=== PATIENT | female | born 1985 | race Caucasian/White ===

== ENCOUNTER 2017-12-16 08:04 | Day surgery (SDC) | payer MEDICAID ==
[~2017-12-16 08:04] MED LIST: Lactated Ringers 1,000 ML IV SCH
[2017-12-16] MEDS ORDERED: Midazolam 1 MG/ML 2 ML SDV IV ONE (09:56)
[2017-12-16] MEDS ORDERED: Propofol 200 MG/20 ML SDV IV ONE (09:56)
[2017-12-16] MEDS ORDERED: Lidocaine 2% 100 MG/5 ML Syringe IVPUSH ONE (09:56)
--- NOTE | 2017-12-16 10:14 | PCM.OPNOTE ---
- General Post-Op/Procedure Note Date of Surgery/Procedure: 12/16/17 Operative Procedure(s): egd with bx Findings: ge junction at 30 cm hiatal hernia erosive esophagitis Pre Op Diagnosis: hx of hiatal hernia. hx of epigastric abd pain Post-Op Diagnosis: ge junction at 30 cm. hiatal hernia. erosive esophagitis Anesthesia Technique: MAC Primary Surgeon: Kevon Valentine Anesthesia Provider: Gilma Garcia Pathology: distal esophagus Complications: None Condition: Good Free Text/Narrative:: see dictation
[2017-12-16 11:53] VITALS: BP 125/78
--- NOTE | 2017-12-16 12:02 | OR ---
DATE OF OPERATION: 12/16/2017 SURGEON: Kevon Valentine MD PREOPERATIVE DIAGNOSIS: Epigastric abdominal pain, personal history of hiatal hernia. POSTOPERATIVE DIAGNOSIS: Erosive esophagitis and hiatal hernia. INDICATIONS FOR PROCEDURE: This is a 32-year-old white female who is referred with the above-mentioned complaint. The patient was offered and accepted an upper endoscopy to evaluate for esophagitis. She does have a known history of hiatal hernia. DESCRIPTION OF PROCEDURE: After an excellent IV sedation was administered, the bite block was inserted. The flexible endoscope was passed without difficulty down the patient's esophagus into the stomach. Stomach was insufflated. Scope was passed through the pylorus to the second portion of the duodenum and slowly withdrawn. The following findings were noted: The duodenum is unremarkable. The stomach demonstrated a hiatal hernia with approximately 10 cm of the esophagus in the chest. The GE junction measured at 30 cm. There was evidence of erosive esophagitis and biopsies were taken. The remainder of the esophageal exam was unremarkable. The stomach was deflated and the scope was removed. The patient tolerated the procedure well and was taken to recovery room in good condition. She will follow up in my office in 7-10 days. /[id number] BARNEY/LIU
== END 2017-12-16 11:13 | disposition home or self-care (01) ==
LOC: FB.SDS 08:04
PROVIDERS: ATTEND Surgery
DX: K22.10 Ulcer of esophagus without bleeding (principal); K44.9 Diaphragmatic hernia without obstruction or gangrene; K21.9 Gastro-esophageal reflux disease without esophagitis; E66.01 Morbid (severe) obesity due to excess calories; E78.5 Hyperlipidemia, unspecified; G47.30 Sleep apnea, unspecified; Z79.899 Other long term (current) drug therapy; Z68.43 Body mass index [BMI] 50.0-59.9, adult; Z90.49 Acquired absence of other specified parts of digestive tract; Z98.890 Other specified postprocedural states; Z87.891 Personal history of nicotine dependence
CPT/HCPCS: 43239; 81025; J2250; J2704; J7120; 88305

== ENCOUNTER 2018-01-08 19:15 | Emergency (ER) | payer MEDICAID ==
[2018-01-08 19:54] VITALS: BP 135/82
--- NOTE | 2018-01-08 20:04 | EDM.PDOC ---
ED HPI GENERAL MEDICAL PROBLEM - General Chief Complaint: Abdominal Pain Stated Complaint: ABD PAIN Time Seen by Provider: 01/08/18 19:15 Source of Information: Reports: Patient History Limitations: Reports: No Limitations - History of Present Illness INITIAL COMMENTS - FREE TEXT/NARRATIVE: 32 y.o.w.f came to the ed because of abd. pain. Pt had her last BM last Tuesday. Pt did not take laxatives as of yet. No N/V or dizziness, no trauma, no other acute medical issues. BP 135/82 RR 14 Pulse ox 98% on RA, Temp 36.8 Pulse 95 Onset Date: 01/06/18 Onset Time: 09:00 Duration: Day(s):, Getting Worse Location: Reports: Abdomen Quality: Reports: Ache, Burning, Dull Severity: Moderate Improves with: Reports: Movement Worsens with: Reports: Rest Context: Reports: Other (sedentary lifestyle) Associated Symptoms: Reports: No Other Symptoms Lower Abdominal Pain Score (Numeric/FACES): 9 - Related Data Allergies Allergy/AdvReac Type Severity Reaction Status Date / Time No Known Allergies Allergy Verified 12/18/14 03:44 Home Meds: Home Meds ClonazePAM [KlonoPIN] 0.5 mg PO BEDTIME PRN 12/15/17 [History] Methylphenidate HCl [Ritalin] 5 mg PO ASDIRECTED 12/15/17 [History] Methylphenidate HCl [Ritalin] 10 mg PO DAILY 12/15/17 [History] Nortriptyline HCl [Pamelor] 25 mg PO BEDTIME 12/15/17 [History] Omeprazole Magnesium 20 mg PO DAILY 12/15/17 [History] Vits #93/Iron Fum/FA [ Formula Tablet] 1 ea PO DAILY 12/15/17 [ History] Rosuvastatin Calcium [Crestor] 40 mg PO DAILY 12/15/17 [History] SUMAtriptan 100 mg PO ASDIRECTED PRN 12/15/17 [History] Sucralfate [Carafate] 1 gm PO WITHMEALSANDBED #120 tablet 12/16/17 [Rx] Past Medical History HEENT History: Reports: Impaired Vision Cardiovascular History: Reports: None, High Cholesterol Respiratory History: Reports: None Gastrointestinal History: Reports: GERD, Hiatal Hernia Genitourinary History: Reports: None 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: III 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 III Musculoskeletal History: Reports: Fracture Neurological History: Reports: Headaches, Chronic Psychiatric History: Reports: None Endocrine/Metabolic History: Reports: Obesity/BMI 30+ Hematologic History: Reports: None Oncologic (Cancer) History: Reports: None Dermatologic History: Reports: None - Infectious Disease History Infectious Disease History: Reports: None - Past Surgical History HEENT Surgical History: Reports: Oral Surgery Other HEENT Surgeries/Procedures: WISDOM TEETH OUT TEEN UNDER GENERAL GI Surgical History: Reports: Cholecystectomy, EGD Other GI Surgeries/Procedures: LAP SHAINA 2014 Musculoskeletal Surgical History: Reports: ORIF Other Musculoskeletal Surgeries/Procedures:: PER HX Social & Family History - Family History Family Medical History: Noncontributory - Tobacco Use Smoking Status *Q: Former Smoker Years of Tobacco use: 2 Used Tobacco, but Quit: Yes Month Tobacco Last Used: 05-14-2006 Second Hand Smoke Exposure: No - Caffeine Use Caffeine Use: Reports: Soda Caffeine Use Comment: 2/WEEK - Alcohol Use Days Per Week of Alcohol Use: 3 - Recreational Drug Use Recreational Drug Use: No ED ROS GENERAL - Review of Systems Review Of Systems: See Below Constitutional: Reports: No Symptoms HEENT: Reports: No Symptoms Respiratory: Reports: No Symptoms Cardiovascular: Reports: No Symptoms Endocrine: Reports: No Symptoms GI/Abdominal: Reports: Abdominal Pain : Reports: No Symptoms Musculoskeletal: Reports: No Symptoms Skin: Reports: No Symptoms Neurological: Reports: No Symptoms Psychiatric: Reports: No Symptoms Hematologic/Lymphatic: Reports: No Symptoms Immunologic: Reports: No Symptoms ED EXAM, GI/ABD - Physical Exam Exam: See Below Exam Limited By: No Limitations General Appearance: Alert, WD/WN, Mild Distress, Obese Eyes: Bilateral: Normal Appearance Ears: Normal External Exam Nose: Normal Inspection Throat/Mouth: Normal Inspection Head: Atraumatic, Normocephalic Neck: Normal Inspection, Supple, Non-Tender, Full Range of Motion Respiratory/Chest: No Respiratory Distress, Lungs Clear, Normal Breath Sounds, Chest Non-Tender Cardiovascular: Normal Peripheral Pulses, Regular Rate, Rhythm, No Edema, No Gallop, No Rub GI/Abdominal Exam: Normal Bowel Sounds, No Organomegaly, No Abnormal Bruit, No Mass, Pelvis Stable, Tender (troughout) (Female) Exam: Deferred Rectal (Female) Exam: Deferred Back Exam: Normal Inspection, Full Range of Motion Extremities: Normal Inspection, Normal Range of Motion, Non-Tender, No Pedal Edema, Normal Capillary Refill Neurological: Alert, Oriented, CN II-XII Intact, Normal Cognition, Normal Gait, No Motor/Sensory Deficits Psychiatric: Normal Affect, Normal Mood Skin Exam: Warm, Dry, Intact, Normal Color, No Rash Lymphatic: No Adenopathy Course - Vital Signs Text/Narrative:: 32 y.o.w.f came to the ed because of abd. pain. Pt had her last BM last Tuesday. Pt did not take laxatives as of yet. No N/V or dizziness, no trauma, no other acute medical issues. BP 135/82 RR 14 Pulse ox 98% on RA, Temp 36.8 Pulse 95 PE: Obese 32 y.o.w.f with abd. pain Imaging: Abd falt/upright: Constipation Impression: Constipation Tx: Fleets enema, Mg Citrate Reexam: Improved Plan: D/C with instructions Last Recorded V/S: Last Vital Signs Temp 36.6 C 01/08/18 19:26 Pulse 95 01/08/18 19:26 Resp 14 01/08/18 19:26 BP 135/82 01/08/18 19:26 Pulse Ox 100 01/08/18 19:26 - Orders/Labs/Meds Orders: Active Orders 24 hr Category Date Time Status Enema [RC] ASDIRECTED Care 01/08/18 20:07 Active Abdomen 2V AP Flat Upright [CR] Stat Exams 01/08/18 19:28 Taken Labs: Laboratory Tests 01/08/18 Range/Units 19:52 Urine Color Yellow (YELLOW) Urine Appearance Clear (CLEAR) Urine pH 6.0 (5.0-6.5) Ur Specific Zearing 1.020 (1.010-1.025) Urine Protein Negative (NEGATIVE) mg/dL Urine Glucose (UA) Normal (NEGATIVE) mg/dL Urine Ketones Negative (NEGATIVE) mg/dL Urine Occult Blood Moderate H (NEGATIVE) Urine Nitrite Negative (NEGATIVE) Urine Bilirubin Negative (NEGATIVE) Urine Urobilinogen Normal (NEGATIVE) mg/dL Ur Leukocyte Esterase Negative (NEGATIVE) Urine RBC 5-10 (0) Urine WBC 0-5 (0) Ur Squamous Epith Cells Few H (NS,R,O) Urine Bacteria Few H (NS) Urine Mucus Few H (NS) Meds: Medications Discontinued Medications Generic Name Dose Route Start Last Admin Trade Name Soham PRN Reason Stop Dose Admin Magnesium Citrate 296 ml 01/08/18 20:33 01/08/18 20:35 Citrate Of Magnesia PO 01/08/18 20:34 Not Given ONETIME ONE Magnesium Citrate Confirm 01/08/18 20:32 Citrate Of Magnesia Administered 01/08/18 20:33 Dose 296 ml .ROUTE .STK-MED ONE Sodium Biphosphate/Sodium Phosphate 133 ml 01/08/18 20:07 01/08/18 20:10 Fleet Enema RECTAL 01/08/18 20:08 133 ml ONETIME ONE Administration Sodium Biphosphate/Sodium Phosphate 133 ml 01/08/18 20:25 Fleet Enema RECTAL 01/08/18 20:26 ONETIME ONE Departure - Departure Time of Disposition: 20:26 Disposition: Home, Self-Care 01 Condition: Good Clinical Impression: Constipation by delayed colonic transit - Discharge Information Instructions: Constipation, Adult, [id number], Magnesium Citrate oral solution Referrals: Rafa Pierre MD [Primary Care Provider] - Forms: ED Department Discharge Additional Instructions: Please eat oatmeal daily, use fleets enemas til clear, please take one amp Mag Citrate as recommended, please f/u, come back if your symptoms get worse acutely - My Orders Last 24 Hours: My Active Orders 01/08/18 19:28 Abdomen 2V AP Flat Upright [CR] Stat 01/08/18 20:07 Enema [RC] ASDIRECTED - Assessment/Plan Last 24 Hours: My Active Orders 01/08/18 19:28 Abdomen 2V AP Flat Upright [CR] Stat 01/08/18 20:07 Enema [RC] ASDIRECTED
[2018-01-08] MEDS ORDERED: Sodium Phosphate,Monobasic/Sodium Phosphate,Dibasic Enema 133 ML Bottle RECTAL ONE ×2 (20:07→20:25)
[2018-01-08] MEDS ORDERED: Magnesium Citrate Solution 296 ML Bottle ONE (20:32)
[2018-01-08] MEDS ORDERED: Magnesium Citrate Solution 296 ML Bottle PO ONE (20:33)
--- NOTE | 2018-01-09 14:06 | CR ---
INDICATION: Abdominal pain, no BM for 2-3 days. ABDOMEN: Six images of the abdomen in supine and upright projections 2017 revealed an intrauterine device centrally in the pelvis, compatible with uterine positioning - correlate clinically. There is evidence of previous cholecystectomy with clips in the area of the cystic duct. Mild dextroconcave scoliosis of the lower middle lumbar spine is noted. The pattern of gas and feces is nonspecific without evidence of free air or obstruction. No definite organomegaly, mass lesions, or definite nonvascular pathologic calcifications were identified. However, there is suggestion of a possible small calculus in the midpole area of the left kidney. Evidence of exogenous obesity is noted. IMPRESSION: 1. IUD in place. 2. Possible tiny calculus mid pole left kidney. 3. Post cholecystectomy. 4. Mild scoliosis. 5. No definite acute abnormality in the abdomen. MTDD
== END 2018-01-08 20:44 | disposition home or self-care (01) ==
LOC: FB.ED 19:15
DX: K59.01 Slow transit constipation (principal); E78.00 Pure hypercholesterolemia, unspecified; Z79.899 Other long term (current) drug therapy; Z87.891 Personal history of nicotine dependence; Z90.49 Acquired absence of other specified parts of digestive tract
CPT/HCPCS: 74019; 81001; 99284; A9270

== ENCOUNTER 2018-08-14 12:58 | Emergency (ER) | payer MEDICAID ==
--- NOTE | 2018-08-14 13:22 | EDM.PDOC ---
ED HPI GENERAL MEDICAL PROBLEM - General Chief Complaint: Chest Pain Stated Complaint: CHEST PAIN Time Seen by Provider: 08/14/18 13:05 Source of Information: Reports: Patient, Family History Limitations: Reports: No Limitations - History of Present Illness INITIAL COMMENTS - FREE TEXT/NARRATIVE: Krissy reports L shoulder pains this early am that occurred while getting kids ready for school. Pains were intermittent and sharp at times, with some radiation accross the L anterior chest. She felt some vague SOB, but became alarmed when L shoulder pains migrated into the L arm, forearm and L hand to the fingertips. There was no corresponding palpitations, sweats, GI upset or lt headiness. She subsequently saw her PCP who did a 12 lead ekg noting NSR and no acute changes, and suggested an ED evaluation. Upon arrival, her sxs have improved. She has taken no meds. - Related Data Allergies Allergy/AdvReac Type Severity Reaction Status Date / Time No Known Allergies Allergy Verified 08/14/18 13:42 Home Meds: Home Meds ClonazePAM [KlonoPIN] 0.5 mg PO BEDTIME PRN 12/15/17 [History] Methylphenidate HCl [Ritalin] 5 mg PO ASDIRECTED 12/15/17 [History] Methylphenidate HCl [Ritalin] 10 mg PO DAILY 12/15/17 [History] Nortriptyline HCl [Pamelor] 25 mg PO BEDTIME 12/15/17 [History] Omeprazole Magnesium 20 mg PO DAILY 12/15/17 [History] Rosuvastatin Calcium [Crestor] 40 mg PO DAILY 12/15/17 [History] SUMAtriptan 100 mg PO ASDIRECTED PRN 12/15/17 [History] Sucralfate [Carafate] 1 gm PO WITHMEALSANDBED #120 tablet 12/16/17 [Rx] Past Medical History HEENT History: Reports: Impaired Vision Cardiovascular History: Reports: None, High Cholesterol Respiratory History: Reports: None Gastrointestinal History: Reports: GERD, Hiatal Hernia Genitourinary History: Reports: None 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: III 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 III Musculoskeletal History: Reports: Fracture Neurological History: Reports: Headaches, Chronic Psychiatric History: Reports: None Endocrine/Metabolic History: Reports: Obesity/BMI 30+ Hematologic History: Reports: None Oncologic (Cancer) History: Reports: None Dermatologic History: Reports: None - Infectious Disease History Infectious Disease History: Reports: None - Past Surgical History HEENT Surgical History: Reports: Oral Surgery Other HEENT Surgeries/Procedures: WISDOM TEETH OUT TEEN UNDER GENERAL GI Surgical History: Reports: Cholecystectomy, EGD Other GI Surgeries/Procedures: LAP SHAINA 2014 Musculoskeletal Surgical History: Reports: ORIF Other Musculoskeletal Surgeries/Procedures:: PER HX Social & Family History - Family History Family Medical History: Noncontributory - Caffeine Use Caffeine Use: Reports: Soda Caffeine Use Comment: 2/WEEK ED ROS GENERAL - Review of Systems Review Of Systems: See Below Constitutional: Reports: No Symptoms HEENT: Reports: No Symptoms Respiratory: Reports: No Symptoms Cardiovascular: Reports: Chest Pain Endocrine: Reports: No Symptoms GI/Abdominal: Reports: No Symptoms : Reports: No Symptoms Musculoskeletal: Reports: Other (L shoulder pain, located behind the shoulder) Skin: Reports: No Symptoms Neurological: Reports: Tingling (L hand and fingertips) Psychiatric: Reports: No Symptoms Hematologic/Lymphatic: Reports: No Symptoms Immunologic: Reports: No Symptoms ED EXAM, GENERAL - Physical Exam Exam: See Below Exam Limited By: No Limitations General Appearance: Alert, WD/WN, No Apparent Distress, Anxious, Obese Eye Exam: Bilateral Eye: EOMI, Normal Inspection, PERRL Ears: Normal External Exam Nose: Normal Inspection Throat/Mouth: Normal Inspection, Normal Oropharynx Head: Atraumatic, Normocephalic Neck: Normal Inspection, Supple, Non-Tender, Full Range of Motion Respiratory/Chest: No Respiratory Distress, Lungs Clear, Normal Breath Sounds, No Accessory Muscle Use, Chest Non-Tender Cardiovascular: Normal Peripheral Pulses, Regular Rate, Rhythm, No Edema, No Gallop, No JVD, No Murmur, No Rub GI/Abdominal: Normal Bowel Sounds, Soft, Non-Tender, No Organomegaly, No Distention, No Mass (Female) Exam: Deferred Rectal (Female) Exam: Deferred Back Exam: Normal Inspection, Full Range of Motion Extremities: Normal Inspection, Normal Range of Motion, Other (limited tenderness of L shoulder in proximity to supraspinatus and infraspinatus mm; no rash) Neurological: Alert, Oriented, CN II-XII Intact, Normal Cognition, No Motor/ Sensory Deficits Psychiatric: Normal Affect, Anxious Skin Exam: Warm, Dry, Intact, Normal Color, No Rash Lymphatic: No Adenopathy Course - Vital Signs Text/Narrative:: Following assessment at the [facility] ED, a screening ekg was normal and unchanged; port chest x ray normal for age; CBC, CMP, Troponin I, d dimer all normal or baseline for age. Atypical chest pain with musculoskeletal L shoulder pain without findings for CVD. - Orders/Labs/Meds Orders: Active Orders 24 hr Category Date Time Status Chest 1V Frontal [CR] Stat Exams 08/14/18 13:16 Taken Labs: Laboratory Tests 08/14/18 08/14/18 08/14/18 Range/Units 13:30 13:30 13:30 WBC 8.6 (4.5-12.0) X10-3/uL RBC 4.60 (3.23-5.20) x10(6)uL Hgb 13.5 D (11.5-15.5) g/dL Hct 40.0 (30.0-51.3) % MCV 86.8 (80-96) fL MCH 29.4 (27.7-33.6) pg MCHC 33.8 (32.2-35.4) g/dL RDW 13.4 (11.5-15.5) % Plt Count 252 (125-369) X10(3)uL MPV 7.9 (7.4-10.4) fL Neut % (Auto) 75.9 (46-82) % Lymph % (Auto) 20.6 (13-37) % Reynolds % (Auto) 2.4 L (4-12) % Eos % (Auto) 1 (1.0-5.0) % Baso % (Auto) 1 (0-2) % Neut # (Auto) 6.5 (1.6-8.3) # Lymph # (Auto) 1.8 (0.6-5.0) # Reynolds # (Auto) 0.2 (0.0-1.3) # Eos # (Auto) 0.1 (0.0-0.8) # Baso # (Auto) 0.0 (0.0-0.2) # D-Dimer, Quantitative 0.52 (0.0-0.59) mg/LFEU Sodium 139 (135-145) mmol/L Potassium 3.3 L (3.5-5.3) mmol/L Chloride 103 (100-110) mmol/L Carbon Dioxide 25 (21-32) mmol/L BUN 13 (7-18) mg/dL Creatinine 0.7 (0.55-1.02) mg/dL Est Cr Clr Drug Dosing TNP Estimated GFR (MDRD) > 60 (>60) BUN/Creatinine Ratio 18.6 (9-20) Glucose 120 H (80-116) mg/dL Calcium 8.8 (8.6-10.2) mg/dL Total Bilirubin 0.5 (0.1-1.3) mg/dL AST 19 (5-25) IU/L ALT 26 (12-36) U/L Alkaline Phosphatase 82 (56-112) IU/L Troponin I (<0.017-0.056) ng/mL Total Protein 7.5 (6.0-8.0) g/dL Albumin 3.5 (3.5-5.2) g/dL Globulin 4.0 g/dL Albumin/Globulin Ratio 0.9 08/14/18 Range/Units 13:30 WBC (4.5-12.0) X10-3/uL RBC (3.23-5.20) x10(6)uL Hgb (11.5-15.5) g/dL Hct (30.0-51.3) % MCV (80-96) fL MCH (27.7-33.6) pg MCHC (32.2-35.4) g/dL RDW (11.5-15.5) % Plt Count (125-369) X10(3)uL MPV (7.4-10.4) fL Neut % (Auto) (46-82) % Lymph % (Auto) (13-37) % Reynolds % (Auto) (4-12) % Eos % (Auto) (1.0-5.0) % Baso % (Auto) (0-2) % Neut # (Auto) (1.6-8.3) # Lymph # (Auto) (0.6-5.0) # Reynolds # (Auto) (0.0-1.3) # Eos # (Auto) (0.0-0.8) # Baso # (Auto) (0.0-0.2) # D-Dimer, Quantitative (0.0-0.59) mg/LFEU Sodium (135-145) mmol/L Potassium (3.5-5.3) mmol/L Chloride (100-110) mmol/L Carbon Dioxide (21-32) mmol/L BUN (7-18) mg/dL Creatinine (0.55-1.02) mg/dL Est Cr Clr Drug Dosing Estimated GFR (MDRD) (>60) BUN/Creatinine Ratio (9-20) Glucose (80-116) mg/dL Calcium (8.6-10.2) mg/dL Total Bilirubin (0.1-1.3) mg/dL AST (5-25) IU/L ALT (12-36) U/L Alkaline Phosphatase (56-112) IU/L Troponin I < 0.017 L (<0.017-0.056) ng/mL Total Protein (6.0-8.0) g/dL Albumin (3.5-5.2) g/dL Globulin g/dL Albumin/Globulin Ratio Departure - Departure Time of Disposition: 14:22 Disposition: Home, Self-Care 01 Condition: Good Clinical Impression: Atypical chest pain Referrals: Rafa Pierre MD [Primary Care Provider] - Forms: ED Department Discharge - Problem List & Annotations (1) Atypical chest pain SNOMED Code(s): 240644321 Code(s): R07.89 - OTHER CHEST PAIN Status: Acute Current Visit: Yes Annotation/Comment:: Atypical chest pain, managed with NSAIDs or Tylenol. (2) Shoulder pain, left SNOMED Code(s): 70366513, 27220775 Code(s): M25.512 - PAIN IN LEFT SHOULDER Status: Acute Current Visit: Yes Annotation/Comment:: L shoulder pain with musculoskeletal features, managment with NSAIDs or Tylenol. Qualifiers: Chronicity: unspecified Qualified Code(s): M25.512 - Pain in left shoulder - Problem List Review Problem List Initiated/Reviewed/Updated: Yes - My Orders Last 24 Hours: My Active Orders 08/14/18 13:16 Chest 1V Frontal [CR] Stat - Assessment/Plan Last 24 Hours: My Active Orders 08/14/18 13:16 Chest 1V Frontal [CR] Stat Plan: Follow up with PCP if needed. Activity as tolerated.
[2018-08-14 16:45] VITALS: BP 114/65
--- NOTE | 2018-08-15 08:34 | CR ---
INDICATION: Atypical chest pain. CHEST: A single AP upright view of the chest in a wheelchair was obtained 08/14 - no comparisons. Overlying EKG leads are noted. The heart is normal in size and shape. Mediastinum was unremarkable. An active infiltrate or effusion was not identified. Evidence of exogenous obesity is noted. IMPRESSION: No acute process. MTDD
== END 2018-08-14 14:40 | disposition home or self-care (01) ==
LOC: FB.ED 12:58
DX: R07.89 Other chest pain (principal); M25.512 Pain in left shoulder; E66.9 Obesity, unspecified; Z79.899 Other long term (current) drug therapy
CPT/HCPCS: 36415; 71045; 80053; 84484; 85025; 85379; 93005; 99285

== ENCOUNTER 2025-01-06 16:21 | Emergency (ER) | payer MEDICAID ==
[2025-01-06] MEDS ORDERED: Albuterol 6.7 GM Inhaler INH ONE (16:22)
[2025-01-06 16:34] VITALS: BP 152/92; PULSE 99
== END 2025-01-06 17:21 | disposition home or self-care (01) ==
LOC: FB.ED 16:21
DX: B34.9 Viral infection, unspecified (principal); E78.00 Pure hypercholesterolemia, unspecified; Z79.899 Other long term (current) drug therapy; Z90.49 Acquired absence of other specified parts of digestive tract
CPT/HCPCS: 87428; 99283; A9270